=== PATIENT | female | born 1995 | race Caucasian/White ===

== ENCOUNTER 2017-08-10 09:29 | Emergency (ER) | payer OTHER ==
[2017-08-10 11:50] LABS: HCG, SERUM QUANTITATIVE 15317 MIU/ML
[2017-08-10 12:24] LABS: HEMATOCRIT 34.8 % (36.0-47.0); HEMOGLOBIN 12.1 g/dl (12.0-16.0); MEAN CORPUSCULAR HEMOGLOBIN 30.3 pg (27.0-33.0); MEAN CORPUSCULAR HGB CONC 34.8 g/dl (32.0-36.5); MEAN CORPUSCULAR VOLUME 87.2 fl (80.0-96.0); PLATELET COUNT, AUTOMATED 282 10^3/uL (150-450); RED BLOOD COUNT 3.99 10^6/uL (4.00-5.40); RED CELL DISTRIBUTION WIDTH 12.6 % (11.5-14.5); WHITE BLOOD COUNT 7.5 10^3/uL (4.0-10.0)
== END 2017-08-10 13:03 | disposition home or self-care (01) ==
LOC: M ED 09:29
DX: O20.0 Threatened abortion (principal); O34.81 Maternal care for other abnormalities of pelvic organs, first trimester; N83.201 Unspecified ovarian cyst, right side; Z3A.01 Less than 8 weeks gestation of pregnancy
CPT/HCPCS: 76801

== ENCOUNTER 2018-04-01 06:41 | Inpatient (IN) | payer OTHER ==
[2018-04-01] MEDS ORDERED: BUPIVACAINE HCL 0.25% 10 ML VIAL XX (07:15)
[2018-04-01] MEDS ORDERED: ACETAMINOPHEN 650 MG SUPP PR (07:15)
[2018-04-01] MEDS: LACTATED RINGER'S 1000 ML IV (07:41)
[2018-04-01 07:55] LABS: HEMATOCRIT 35.1 % (36.0-47.0); HEMOGLOBIN 12.1 g/dl (12.0-15.5); MEAN CORPUSCULAR HEMOGLOBIN 31.5 pg (27.0-33.0); MEAN CORPUSCULAR HGB CONC 34.5 g/dl (32.0-36.5); MEAN CORPUSCULAR VOLUME 91.4 fl (80.0-96.0); PLATELET COUNT, AUTOMATED 249 10^3/uL (150-450); RED BLOOD COUNT 3.84 10^6/uL (4.00-5.40); RED CELL DISTRIBUTION WIDTH 12.9 % (11.5-14.5); WHITE BLOOD COUNT 12.6 10^3/uL (4.0-10.0)
[2018-04-01] MEDS: LR 1,000 ML IV ×2 (08:34→12:37)
[2018-04-01] MEDS: AZITHROMYCIN INJ 500 MG, VIAL MATE ADAPTER 1 EACH in D5W 250 ML IV (08:45)
[2018-04-01] MEDS: BICITRA 30ML SOLN UDC PO (10:07)
[2018-04-01] MEDS ORDERED: METOCLOPRAMIDE INJ 10MG/2ML VIAL (J2765) IV (10:29)
[2018-04-01] MEDS ORDERED: ONDANSETRON 4MG/2ML VIAL (J2405) IV ×2 (10:29→12:30)
[2018-04-01] MEDS ORDERED: NALOXONE INJ 0.4 MG/1 ML VIAL (J2310) IV ×2 (10:29)
[2018-04-01] MEDS ORDERED: MORPHINE PRES-FREE INJ 10 MG/10 ML VIAL (J2274) As Ordered (10:34)
[2018-04-01] MEDS ORDERED: ONDANSETRON 4MG/2ML VIAL (J2405) As Ordered (10:34)
[2018-04-01] MEDS ORDERED: KETOROLAC 60 MG/2 ML VIAL (J1885) As Ordered (10:34)
[2018-04-01] MEDS ORDERED: OXYTOCIN INJ 10 UNITS/ML VIAL (J2590) As Ordered ×2 (10:34→11:02)
[2018-04-01] MEDS ORDERED: BUPIVACAINE/DEXTROSE 0.75% 2 ML AMP As Ordered (10:40)
[2018-04-01 11:20] LABS: CORD GAS ABE A -2.1; CORD GAS O2 SAT A 54.2 %; CORD GAS PCO2 A 52.5 mmHg; CORD GAS PH A 7.295 UNITS; CORD GAS PO2 A 24.4 mmHg; CORD GAS SBC A 21.9 MEQ/L; CORD GAS TCO2 A 26.6 MEQ/L
[2018-04-01 11:22] LABS: CORD GAS HCO3 V 23.6 MEQ/L; CORD GAS O2 SAT V 71.3 %; CORD GAS PCO2 V 43.7 mmHg; CORD GAS PH V 7.351 UNITS; CORD GAS PO2 V 29.6 mmHg; CORD GAS SBC V 22.2 MEQ/L
[2018-04-01] MEDS ORDERED: DOCUSATE SODIUM 100 MG CAP PO (11:45)
[2018-04-01] MEDS ORDERED: MEASLES,MUMPS,RUBELLA VACCINE INJ (MMR-II) (90707) SC (11:45)
[2018-04-01] MEDS ORDERED: OXYTOCIN INJ 10 UNITS/ML VIAL (J2590) IV (11:45)
[2018-04-01] MEDS ORDERED: ANUSOL HC CREAM 30GM TOP (11:45)
[2018-04-01] MEDS ORDERED: MOM 30ML SUSPENSION UDC PO (11:45)
[2018-04-01] MEDS ORDERED: RHOGAM 300 MCG (1500 IU) INJ (J2790) IM (11:45)
[2018-04-01] MEDS: OXYTOCIN DRIP 30 UNITS in APPROPRIATE DILUENT 1 EA IV (11:46)
[2018-04-01] MEDS ORDERED: OXYTOCIN 30 UNITS IN 0.9% NaCl 500ML IV BAG (J2590) As Ordered (11:47)
[2018-04-01] MEDS ORDERED: fentaNYL 100 MCG/2 ML INJECTION (J3010) IV (12:30)
[2018-04-01] MEDS ORDERED: NALBUPHINE HCL 10 MG/ML AMP (J2300) IV (12:30)
[2018-04-01] MEDS ORDERED: PERCOCET 5MG/325MG TAB As Ordered (12:40)
[2018-04-01] MEDS: PERCOCET 5MG/325MG TAB PO ×3 (12:41→21:18)
[2018-04-01] MEDS: NALBUPHINE HCL 10 MG/ML AMP (J2300) IV (13:34)
[2018-04-01] MEDS: PRENATAL VITAMINS CHEWABLE TABLET PO (13:53)
[2018-04-01] MEDS: KETOROLAC 30 MG/ML VIAL (J1885) IV ×2 (17:01→23:10)
[2018-04-02] MEDS: KETOROLAC 30 MG/ML VIAL (J1885) IV (05:05)
[2018-04-02] MEDS: PERCOCET 5MG/325MG TAB PO ×2 (06:08→15:18)
[2018-04-02 07:23] LABS: HEMATOCRIT 32.5 % (36.0-47.0); HEMOGLOBIN 10.9 g/dl (12.0-15.5); MEAN CORPUSCULAR HEMOGLOBIN 31.7 pg (27.0-33.0); MEAN CORPUSCULAR HGB CONC 33.5 g/dl (32.0-36.5); MEAN CORPUSCULAR VOLUME 94.5 fl (80.0-96.0); PLATELET COUNT, AUTOMATED 193 10^3/uL (150-450); RED BLOOD COUNT 3.44 10^6/uL (4.00-5.40); WHITE BLOOD COUNT 11.6 10^3/uL (4.0-10.0)
[2018-04-02] MEDS: PRENATAL VITAMINS CHEWABLE TABLET PO (09:24)
[2018-04-02] MEDS: INFLUENZA QUADRIVALENT PF VACCINE 0.5ML SYRINGE (90686) IM (09:25)
[2018-04-02] MEDS: IBUPROFEN 800 MG TAB PO ×2 (15:55→23:25)
[2018-04-03] MEDS: PERCOCET 5MG/325MG TAB PO (05:49)
[2018-04-03] MEDS: IBUPROFEN 800 MG TAB PO (08:30)
[2018-04-03] MEDS: PRENATAL VITAMINS CHEWABLE TABLET PO (08:31)
== END 2018-04-03 12:40 | disposition home or self-care (01) | DRG 766 ==
LOC: M LDI 06:41 → M OBS 13:11
PROVIDERS: Obstetrics & Gynecology
PROC: 10D00Z1 Extraction of Products of Conception, Low, Open Approach (ICD-10-PCS; principal; 2018-04-01 09:45)
DX: O34.211 Maternal care for low transverse scar from previous cesarean delivery (principal); Z3A.39 39 weeks gestation of pregnancy; Z37.0 Single live birth; O99.89 Other specified diseases and conditions complicating pregnancy, childbirth and the puerperium; R33.9 Retention of urine, unspecified